=== PATIENT | female | born 1950 | race Caucasian/White ===

== ENCOUNTER → 2016-06-07 | Outpatient (CLI) | payer OTHER ==
[~2016-06-07] MED LIST: AMT10 PO; ASPI81TA28 PO; ATOR-22 PO; CLON2TAB3 PO; CLX/20 PO; CYCL10TA6 PO; CYM/30 PO; GABA1CAP5 PO; GLC500 PO; LEVO75TA PO; LISI-461 PO; MELO15TA4 PO; METH500T37 PO; OMEP40CA PO; PRLSR20 PO
--- NOTE | 2016-06-07 13:24 | MAMMOGRAPHY REPORT ---
BILATERAL DIGITAL SCREENING MAMMOGRAM WITH CAD: 06/07/2016 TECHNIQUE: Current study was also evaluated with a Computer Aided Detection (CAD) system. Bilatera l CC and MLO views were obtained. COMPARISON: Comparison is made to exams dated: 06/04/2015 mammogram, 06/02/2014 mammogram, 05/30/2013 ma mmogram, 05/28/2012 mammogram, 05/25/2011 mammogram, and 12/01/2009 mammogram - [facility]. BREAST COMPOSITION: There are scattered areas of fibroglandular density in both breasts. FINDINGS: No suspicious masses, calcifications, or areas of architectural distortion are noted in e ither breast. There has been no significant interval change compared to prior exams. Scattered bilat eral benign-appearing calcifications are not significantly changed. Small nodular asymmetry in the left superior anterior breast is similar to the 2013 exam and consistent with normal overlapping fib roglandular tissue. IMPRESSION: ACR BI-RADS CATEGORY 2: BENIGN There is no mammographic evidence of malignancy. A 1 year screening mammogram is recommended. The p atient will receive written notification of the results. Approximately 10% of breast cancers are not detected with mammography. A negative mammographic repor t should not delay biopsy if a clinically suggestive mass is present. Penny Das M.D. ah/:06/07/2016 09:50:04 Licensed Club Manager: Lana TORRES)(Liliam), [facility] letter sent: Normal 1/2 BI-RADS Code: ACR BI-RADS Category 2: Benign
== END | disposition home or self-care (01) ==
LOC: C.MAMM 09:30
PROVIDERS: ATTEND Family Medicine
DX: Z12.31 Encounter for screening mammogram for malignant neoplasm of breast (principal)

== ENCOUNTER → 2016-12-06 | Day surgery (SDC) | payer OTHER ==
[2016-11-10 10:30] VITALS: Ht 167.6 cm; Wt 95.0 kg
[~2016-12-06] VITALS: Ht 167.6 cm; Wt 95.0 kg
[~2016-12-06] MED LIST changes: +500ML BSS 0.3ML EPI 1:1000PF IRRIG ONE; +ACETAMINOPHEN 325 MG TAB PO PRN; -AMT10 PO; +AMVISC PLUS 0.8ML SYRINGE INT OCU ONE; +ATROPINE SULFATE 0.1 MG/ML 5ML SYR IV PRN; +BSS FLUSH ONE; -CLON2TAB3 PO; -CYM/30 PO; +EpHEDrine SULFATE INJ 50 MG/ML AMP IV PRN; +EpINEphrine INJ 1MG/ML AMP 1 MG/ML AMP ONE; +FENTANYL CITRATE INJ 50 MCG/1 ML 2 ML VIAL ONE; -GABA1CAP5 PO; +LACTATED RINGER'S 1000ML 500 ML IV SCH; +LIDOCAINE 3.5% OPH GEL PER APPLICATION CHARGE ONE; +LIDOCAINE HCL 1% MPF 2 ML VIAL ONE; -LISI-461 PO; -MELO15TA4 PO; -METH500T37 PO; +MIDAZOLAM HCL 1 MG/ML 2ML VIAL ONE; +OCUCOAT 1 ML SOLN IO ONE; -OMEP40CA PO; +PHENYLEPHRINE HCL 10% OP SOLN PER DROP CHARGE OPR SCH; +POVIDONE-IODINE OP SOLN 30 ML BTL ONE; +PROPARACAINE 0.5% OP SOLN PER DROP CHARGE OPR SCH; +TOBRAMYCIN/DEXAMETHASONE OPH OINT PER APPLN CHARGE ONE
[2016-12-06] MEDS: PHENYLEPHRINE HCL 2.5% OP SOLN PER DROP CHARGE OPR SCH ×2 (06:38→06:44)
[2016-12-06] MEDS: TROPICAMIDE 1% OP SOLN PER DROP CHARGE OPR SCH ×2 (06:39→06:45)
[2016-12-06] MEDS: CYCLOPENTOLATE HCL 1% OP SOLN PER DROP CHARGE OPR SCH ×2 (06:40→06:46)
[2016-12-06] MEDS: KETOROLAC 0.5% OP SOLN PER DROP CHARGE OPR SCH ×2 (06:41→06:47)
[2016-12-06] MEDS: GATIFLOXACIN OP SOLN PER DROP CHARGE OPR SCH ×2 (06:42→06:52)
--- NOTE | 2016-12-06 07:25 | History & Physical Bridge - SC ---
H&P Re-Evaluation Bridge Note: I have examined the patient, reviewed the History & Physical and in the interval since the performance of the History & Physical I have noted the following changes of clinical significance: No changes noted
--- NOTE | 2016-12-06 08:00 | Discharge Instructions-SurgCtr ---
Discharge Instructions Date of Service Dec 06, 2016. Visit Reason for Visit: Right Cataract Discharge Discharge Diagnosis / Problem: cataract Discharge Goals Goal(s): Improve function Activity Recommendations Activity Limitations: per Instructions/Follow-up section Anesthesia . Post Anesthesia Instructions: If you have had General Anesthesia or IV Sedation: * Do not drive today. * Resume driving when surgeon permits. * Do not make important decisions or sign legal documents today. * Call surgeon for: 1. Temperature elevations greater than 101 degrees F. 2. Uncontrollable pain. 3. Excessive bleeding. 4. Persistent nausea and vomiting. 5. Medication intolerance (nausea, vomiting or rash). * For nausea and vomiting use only clear liquids such as: tea, soda, bouillon until nausea subsides, then gradually increase diet as tolerated. * If you have any concerns or questions, call your surgeon's office. If physician is unavailable and it is an emergency, call 911 or go to the nearest emergency room. . Instructions / Follow-Up Instructions / Follow-Up ACTIVITY RECOMMENDATIONS: * No strenuous lifting, jogging or running for 4 days * No swimming or yard work for 1 week. * Limited bending is permitted, such as putting on shoes. RETURN TO SCHOOL/WORK: No work until seen by physician in office. MEDICATIONS: Resume previous medications unless instructed otherwise by your surgeon. This includes eye drops for glaucoma. Zymaxid/Gatifloxacin (hwang cap) - one drop every 2 hours until bedtime Nevanac/Ilevro/Prolensa/Ketorolac (conklin cap) - one drop every 4 hours until bedtime Prednisolone/Durezol (white/pink cap, SHAKE WELL) - one drop every 2 hours until bedtime Starting tomorrow - all 3 drops every 4 hours until seen in the office Optive drops - as needed for discomfort SPECIAL CARE INSTRUCTIONS: * Wear eyeshield when sleeping, for four nights. * You may wear your own glasses or sunglasses while awake. * You may read or watch TV * You may shower and wash your face, but be gentle around the eye and pat dry. * Blurry vision and mild irritation are normal. * Call office if pain is more severe or vision becomes dark at . FOLLOW UP VISIT: Follow-up with Dr Hunter tomorrow. Diet Recommendations Home Diet: resume previous diet Procedures Procedures Performed: Right Cataract Phacoemulsification With Intraocular Lens Implant Pending Studies Studies pending at discharge: no Medical Emergencies . Who to Call and When: Medical Emergencies: If at any time you feel your situation is an emergency, please call 911 immediately. . Non-Emergent Contact Non-Emergency issues call your: Hospice Consultant . . "Provider Documentation" section prepared by Herman Hunter. .
--- NOTE | 2016-12-06 08:01 | [facility] Operative Report ---
Operative Report Date of Service Dec 06, 2016. Operative Report 1. PREOPERATIVE DIAGNOSIS: Cataract of the right eye. 2. POSTOPERATIVE DIAGNOSIS: Same. 3. PROCEDURE: Phacoemulsification with intraocular lens implantation of the right eye. SURGEON: Dr. Herman Hunter. ANESTHESIA: Topical Lidocaine gel, 1% Non- Preserved intracameral Lidocaine, and monitored intravenous sedation. INDICATIONS FOR THE PROCEDURE: The patient is a 66 - year-old female with a history of cataract of the right eye causing significant visual impairment. The details of the proposed procedure were explained to the patient who asked appropriate questions and following discussion of all risks, benefits and alternatives agreed to have the procedure done. 4. OPERATION AND FINDINGS: DESCRIPTION OF PROCEDURE: After informed consent was obtained, the patient was brought to the Operating Room at the [facility]. The patient was placed in a supine position and then the right eye was prepped and draped in the usual sterile fashion for intraocular surgery. A drop of topical Lidocaine gel was placed in the operative eye. A wire lid speculum was then placed in the fornices. A corneal paracentesis was then created temporally. The Non-Preserved Lidocaine was then instilled into the anterior chamber. The anterior chamber was then pressurized with viscoelastic. A 2.0 mm clear corneal incision was then created temporally. A cystotome was inserted into the anterior chamber and used to create a tear in the anterior lens capsule. This capsular tear was then used to create a small flap and the flap was dragged in a counterclockwise direction in order to create a continuous curvilinear capsulorrhexis. Hydrodissection was accomplished with balanced salt solution. Phacoemulsification of the lens nucleus was then performed in a standard [id number] technique. The phaco time was 27 seconds with an average power of 8 %. The remaining cortical material was removed using irrigation aspiration. The capsular bag was then filled with viscoelastic. A Bausch [employer] Lomb MI60L +23.5 diopters lens was then loaded into the injector and injected into the capsular bag. The remaining viscoelastic was removed with the irrigation aspiration handpiece. The wound was hydrated and then checked and found to be watertight. The intraocular pressure was checked and found to be adequate. The wire lid speculum was removed and the patient's face was cleaned and dried. TobraDex ointment was placed in the inferior fornix. The patient was discharged to the Recovery Room having tolerated the procedure well. There were no complications. The patient will be seen tomorrow in the office for follow-up. I attest to the content of the Intraoperative Record and any orders documented therein. Any exceptions are noted below.
[2016-12-06 08:04] VITALS: TEMP 36
[2016-12-06 08:27] VITALS: BP 141/73; PULSE 59; O2SAT 96
--- NOTE | 2016-12-06 08:31 | Anesthesia Progress Nt - [facility] ---
Anesthesia Post Op Note Date & Time Dec 06, 2016 at 08:30 Vital Signs Pain Intensity: 0 Vital Signs Past 12 Hours Date Time Temp Pulse Resp B/P (MAP) Pulse Ox O2 Delivery O2 Flow Rate FiO2 12/06/16 08:27 59 16 141/73 (95) 96 Room Air 12/06/16 08:04 36 69 14 151/79 (103) 98 Room Air 12/06/16 06:29 36.3 69 16 140/69 (92) 97 Room Air Notes Mental Status: alert / awake / arousable, participated in evaluation Pt Amnestic to Procedure: Yes Nausea / Vomiting: adequately controlled Pain: adequately controlled Airway Patency, RR, SpO2: stable & adequate BP & HR: stable & adequate Hydration State: stable & adequate Anesthetic Complications: no major complications apparent
== END | disposition home or self-care (01) ==
LOC: X.SURG 06:09
PROVIDERS: ATTEND Ophthalmology
DX: H26.9 Unspecified cataract (principal); E11.9 Type 2 diabetes mellitus without complications

== ENCOUNTER → 2017-06-09 | Outpatient (CLI) | payer OTHER ==
[~2017-06-09] MED LIST changes: -500ML BSS 0.3ML EPI 1:1000PF IRRIG ONE; -ACETAMINOPHEN 325 MG TAB PO PRN; -AMVISC PLUS 0.8ML SYRINGE INT OCU ONE; -ATROPINE SULFATE 0.1 MG/ML 5ML SYR IV PRN; -BSS FLUSH ONE; -EpHEDrine SULFATE INJ 50 MG/ML AMP IV PRN; -EpINEphrine INJ 1MG/ML AMP 1 MG/ML AMP ONE; -FENTANYL CITRATE INJ 50 MCG/1 ML 2 ML VIAL ONE; -LACTATED RINGER'S 1000ML 500 ML IV SCH; -LIDOCAINE 3.5% OPH GEL PER APPLICATION CHARGE ONE; -LIDOCAINE HCL 1% MPF 2 ML VIAL ONE; -MIDAZOLAM HCL 1 MG/ML 2ML VIAL ONE; -OCUCOAT 1 ML SOLN IO ONE; -PHENYLEPHRINE HCL 10% OP SOLN PER DROP CHARGE OPR SCH; -POVIDONE-IODINE OP SOLN 30 ML BTL ONE; -PROPARACAINE 0.5% OP SOLN PER DROP CHARGE OPR SCH; -TOBRAMYCIN/DEXAMETHASONE OPH OINT PER APPLN CHARGE ONE
--- NOTE | 2017-06-09 14:57 | MAMMOGRAPHY REPORT ---
BILATERAL DIGITAL SCREENING MAMMOGRAM TOMOSYNTHESIS WITH CAD: 06/09/2017 CLINICAL HISTORY: Routine screening. TECHNIQUE: Breast tomosynthesis in addition to standard 2D mammography was performed. Current study was also evaluated with a Computer Aided Detection (CAD) system. COMPARISON: Comparison is made to exams dated: 06/07/2016 mammogram, 06/04/2015 mammogram, 06/02/2014 ma mmogram, 05/30/2013 mammogram, 05/28/2012 mammogram, and 05/25/2011 mammogram - [facility] BREAST COMPOSITION: There are scattered areas of fibroglandular density in both breasts. FINDINGS: No suspicious masses, calcifications, or areas of architectural distortion are noted in ei ther breast. There has been no significant interval change compared to prior exams. Scattered bilater al benign-appearing calcifications are not significantly changed. IMPRESSION: ACR BI-RADS CATEGORY 2: BENIGN There is no mammographic evidence of malignancy. A 1 year screening mammogram is recommended. The pa tient will receive written notification of the results. Approximately 10% of breast cancers are not detected with mammography. A negative mammographic report should not delay biopsy if a clinically suggestive mass is present. Penny Das M.D. ah/:06/09/2017 12:09:25 Utility Helicopter Repairer: Vivienne MERINO(R)(M), [facility] letter sent: Normal 1/2 BI-RADS Code: ACR BI-RADS Category 2: Benign
== END | disposition home or self-care (01) ==
LOC: C.MAMM 09:53
PROVIDERS: ATTEND Family Medicine
DX: Z12.31 Encounter for screening mammogram for malignant neoplasm of breast (principal)

== ENCOUNTER 2018-09-11 16:35 | Observation (INO) ==
--- OUTSIDE RECORDS SUMMARY | 2018-09-11 16:38 | External Medical Summary | Continuity of Care Document ---
:1950 Author Name Anjali Rogers, Provider Address Unavailable Unavailable , Care Team Providers Name Role Phone Kim Calhoun PA-C Unavailable [email or web address] Unavailable Unavailable Unavailable Unavailable Unavailable Assessments Assessed Problems:PsoriasisHypertensionHyperthyroidismType 2 diabetes mellitus Acid refluxSleep disturbancesDepressionHypercholesterolemiaRestless legs syndromeStapedial myoclonus Problems Restless legs syndrome (333.94) (G25.81) Hypercholesterolemia (272.0) (E78.00) Depression (311) (F32.9) Sleep disturbances (780.50) (G47.9) Acid reflux (530.81) (K21.9) Type 2 diabetes mellitus (250.00) (E11.9) Hyperthyroidism (242.90) (E05.90) Hypertension (401.9) (I10) Psoriasis (696.1) (L40.9) 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) Allergies and Adverse Reactions niacin (Allergy) Penicillins (Allergy) Bandaid (Allergy) Shrimp (Allergy) Medications Omeprazole 20 MG Oral Tablet Delayed Release Refills: 0 metFORMIN HCl TABS Refills: 0 Levothyroxine Sodium TABS Refills: 0 Lisinopril TABS Refills: 0 Lovastatin TABS Refills: 0 glipiZIDE TABS Refills: 0 Meloxicam TABS Refills: 0 Calcium + D TABS Refills: 0 Procedures History of Tonsillectomy Status: Complet ed History of Knee Surgery Status: Complete d History of Elbow Surgery Status: Complet ed History of Shoulder Surgery Status: Comp leted History of Eye Surgery Status: Completed History of Ankle Surgery Status: Complet ed History of Dental Surgery Status: Comple agustin Immunizations Immunizations not documented Family History Sister Family history of malignant neoplasm of breast (V16.3) (Z80. 3) Status: Active Family history of asthma (V17.5) (Z82.5) Status: Active Mother Family history of diabetes mellitus (V18.0) (Z83.3) Status: Active Family history of Embolism, pulmonary with infarction (415.1 9) Status: Active (I26.99) Father Family history of cerebrovascular accident (V17.1) (Z82.3) S tatus: Active Social History - Smoking Status Former smoker Interventions Follow-ups/ReferralsFollow-up as needed; Done: 17 Sep 2014 Plan of Treatment Planned Observations Planned Goals not documented Results No Known Results Results not documented Encounters Appointment; Kim Calhoun PA-C 17-Sep-2014 10:00 Encounter Diagnosis: Problem not documented
[2018-09-11 17:15] LABS: Basophils # (auto) 0.04 K/uL (0-0.2); Basophils % (auto) 0.7 %; Eosinophils # (auto) 0.26 K/uL (0-0.5); Eosinophils % (auto) 4.2 %; Hematocrit (blood only) 33.9 % (37-47); Hemoglobin 10.4 g/dL (12.0-16.0); Immature Granulocytes # (auto) 0.01 K/uL (0.00-0.02); Immature Granulocytes % (auto) 0.2 %; Lymphocytes # (auto) 2.02 K/uL (1.2-3.4); Mean Corpuscular Hgb Conc 30.7 g/dL (32-36); Mean Corpuscular Volume 89.7 fL (80-100); Mean Platelet Volume 9.9 fL (7.4-10.4); Monocytes # (auto) 0.62 K/uL (0.11-0.59); Monocytes % (auto) 10.1 %; Neutrophils # (auto) 3.18 K/uL (1.4-6.5); Neutrophils % (auto) 51.8 %; Platelet Count 249 K/uL (130-400); RDW Coefficient of Variation 14.3 % (11.5-14.5); RDW Standard Deviation 46.7 fL (36.4-46.3); Red Blood Count 3.78 M/uL (4.2-5.4); White Blood Count 6.13 K/uL (4.8-10.8)
--- NOTE | 2018-09-11 17:16 | CT Scan Report ---
CT head/brain wo con CLINICAL HISTORY: 67 years-old Female with Stroke evaluation . Acute strokelike symptoms TECHNIQUE: Multiple axial CT images of the head were obtained without contrast. A dose lowering tech nique was utilized adhering to the principles of ALARA. CT DOSE: 537.48 mGy.cm COMPARISON: Head CT 07/24/2015. FINDINGS: No acute intracranial hemorrhage, midline shift, intracranial mass, hydrocephalus, territorial ischem ia or abnormal extra-axial collection. Mild age-related involutional changes. Patchy white matter hyp odensities suggest chronic microscopic vascular ischemic disease, unchanged. Cerebral vascular calcif ications are noted. The calvarium is intact. The paranasal sinuses, mastoid air cells, and middle ear cavities are clear . IMPRESSION: No acute intracranial abnormality. The above report was generated using voice recognition software. It may contain grammatical, syntax o r spelling errors. Electronically signed by: Maikel Miller M.D. 09/11/2018 5:15 PM
[2018-09-11 17:25] LABS: Partial Thromboplastin Ratio 0.9; Partial Thromboplastin Time 23.9 Seconds (21.0-31.0); Prothrombin Time 10.3 Seconds (9.0-12.0)
[2018-09-11 17:31] LABS: Alanine Aminotransferase 21 U/L (12-78); Albumin Level 3.4 gm/dl (3.4-5.0); Aspartate Aminotransferase 17 U/L (15-37); BUN Creatinine Ratio 11.1 (10-20); Blood Urea Nitrogen 13 mg/dl (7-18); Calcium 9.3 mg/dl (8.5-10.1); Carbon Dioxide 29 mmol/L (21-32); Chloride 106 mmol/L (98-107); Creatinine Clr Calc Pharmacy 52.5 ml/min; Est GFR (African American) 54.5; Glucose 122 mg/dl (70-99); Magnesium 1.6 mg/dl (1.8-2.4); Potassium 4.2 mmol/L (3.5-5.1); Sodium 140 mmol/L (136-145)
[2018-09-11 17:36] LABS: Albumin Globulin Ratio 0.9 (0.9-2); Alkaline Phosphatase 118 U/L (45-117); Bilirubin,Total 0.2 mg/dl (0.2-1); Globulin 3.6 gm/dl (2.5-4.0); Troponin I < 0.015 ng/ml (0-0.045)
--- NOTE | 2018-09-11 17:40 | XRay Report ---
XR chest 1V portable CLINICAL HISTORY: 67 years-old Female presenting with cva. TECHNIQUE: Portable upright AP view of the chest was obtained. COMPARISON: Chest CT from 07/24/2015 and chest x-ray from 03/14/2014. FINDINGS: Atherosclerosis of the aortic arch. Cardiac silhouette top normal in size. No focal opacity. No large effusion or pneumothorax. Degenerative changes of the thoracic spine. Posttraumatic deformity of the left clavicle. Upper abdomen normal. IMPRESSION: 1. No acute cardiopulmonary disease. Electronically signed by: Keenan Ewing M.D. 09/11/2018 5:39 PM
--- NOTE | 2018-09-11 20:03 | History & Physical Report ---
Date of Service September 11, 2018 Assessment & Plan (1) TIA (transient ischemic attack): This is a 67-year-old female with a PMH of DM II, CKD III, HLD and other medical problems listed below who presents with left-sided paresthesias and numbness of face and hand beginning earlier today that have since resolved. -Left sided paresthesias and numbness of hand, since resolved -Rule out CVA. CT head-negative for acute abnormality -Check MRI brain w/wo, CTA head/neck, echo w/ bubble study -Continue baby aspirin. If found to have deficit, will need to add Plavix -Neuro checks, PT, OT, speech therapy evaluations -NPO for now. Advance diet once passes dysphagia screen -Routine neuro consult (2) Diabetes mellitus, type II: Recent a1c of 6.7 -Hold home agents -SSI while in-patient -BSG AC HS (3) Hypertension: Used to be on antihypertensives but have been discontinued (4) Hyperlipidemia: Continue statin (5) CKD (chronic kidney disease), stage III: Kidney function at baseline. Continue to monitor with daily BMP (6) Mood disorder: Continue Celexa, Remeron (7) GERD (gastroesophageal reflux disease): Continue PPI DVT Ppx: SQ Lovenox Code status: FULL PCP: Daniela Dispo: Observation med tele. Discharge planning ordered per stroke set protocol. Patient seen in collaboration with Dr. Story. Please see addendum. History of Present Illness Chief Complaint: Left hand/face numbness, left hand weakness Primary Care Provider: Miguel Suarez MD This is a 67-year-old female with a PMH of DM II, CKD III, HLD and other medical problems listed below who presents with left-sided paresthesias and numbness of face and hand beginning earlier today that have since resolved. Patient was working around her yard today, mowing her lawn with a riding mower and helping in the garage when she developed progressive numbness of left hand and face. Then also developed weakness of left hand and was unable to button jeans or brain picker objects from table. Denies any difficulty speaking, swallowing or walking. Denies any personal history of stroke. Has been experiencing lightheadedness intermittently over the past few months that occurs when she looks up or moves quickly. Has history of vertigo and states that this feels similar. Remote history of migraines 30 years ago. Takes baby aspirin daily. In ED, patient mildly hypertensive with BP 155/69. Kidney function is at baseline. Has history of diabetes with A1c of 6.7 in June 2018. Prior to my evaluation, patient described as an ache in her chest that was reproducible. EKG is normal sinus rhythm, no ischemic changes. Pain has since resolved. Denies any fever, chills, lightheadedness, headache, palpitations, shortness of breath, nausea, vomiting, abdominal pain, dysuria, diarrhea or constipation. Allergies Allergy/AdvReac Type Severity Reaction Status Date / Time Penicillins Allergy Intermediate RASH Verified 09/11/18 17:05 shrimp Allergy Intermediate HIVES Verified 09/11/18 17:05 tramadol Allergy Mild iTCHY Verified 09/11/18 17:05 niacin AdvReac Mild GETS RED Verified 09/11/18 17:05 Home Medications Home Medications Medication Instructions Recorded Confirmed Type aspirin [Aspir-81] 81 mg PO DAILY 04/28/18 09/11/18 History atorvastatin [Lipitor] 20 mg PO DAILY 04/28/18 09/11/18 History citalopram [Celexa] 20 mg PO QPM 04/28/18 09/11/18 History levothyroxine [Synthroid] 75 mcg PO DAILY 04/28/18 09/11/18 History metformin [Glucophage] 1,000 mg PO BID 04/28/18 09/11/18 History omeprazole 20 mg PO DAILY 04/28/18 09/11/18 History prednisolone acetate [Pred Forte] 1 drp OPL DAILY 04/28/18 09/11/18 History mirtazapine 15 mg PO HS 09/11/18 09/11/18 History pramipexole 0.5 mg PO HS 09/11/18 09/11/18 History tramadol 50 mg PO UD PRN 09/11/18 09/11/18 History Past Med/Surg History Medical History CKD (chronic kidney disease), stage III (Chronic) Mood disorder (Chronic) Diabetes mellitus, type II (Chronic) GERD (gastroesophageal reflux disease) (Chronic) Chronic tonsillitis (Chronic) Hyperlipidemia (Chronic) Hypertension (Chronic) Lumbar stenosis with neurogenic claudication (Chronic 03/13/14) Rosacea (Chronic) Surgical History History of back surgery (Chronic) H/O shoulder surgery (Chronic) History of ankle surgery (Chronic) Family History Other Cancer Diabetes Hypertension Social History Preferred Language: Maltese Communication Ability: Effective Visual Impairment: No Limitations Hearing Ability: Normal Beliefs That Will Affect Care: None Current Living Situation: Spouse Other Information That Helps Us Care for You: No Feels Safe at Home: Yes Safety Concerns: Feels Safe At This Time Smoking Status: Never smoker Years Smoked: 28 Smoking End Date: 1996 Hx Alcohol Use: No Hx Substance Use: No Review of Systems Review of Systems: At least ten systems reviewed and negative except as noted in the HPI. Physical Exam Physical Exam: General Appearance: WD/WN, no apparent distress, resting comfortably Head: normocephalic, atraumatic Eyes: normal inspection, PERRL, EOMI ENT: hearing grossly normal, pharynx normal (moist mucous membranes) Neck: supple, no JVD, no adenopathy Respiratory/Chest: lungs clear to auscultation. No wheezes, rales or rhonci. No respiratory distress or accessory muscle use Cardiovascular: regular rate, rhythm, no murmur, normal peripheral pulses Abdomen/GI: normal bowel sounds, soft, non-tender to palpation Extremities/Musculoskelatal: normal inspection, no calf tenderness, normal capillary refill, no pedal edema Neurologic/Psych: alert, normal mood/affect, oriented x 3. CN II- XII grossly intact. No sensory or motor deficits noted. Skin: normal color, warm/dry Results & Data Vital Signs (Past 12 Hours) Vital Signs Temp Pulse Resp BP Pulse Ox 09/11/18 19:15 67 19 155/69 H 95 09/11/18 19:00 68 18 142/77 H 95 09/11/18 18:46 69 18 146/78 H 96 09/11/18 18:45 68 19 97 09/11/18 18:30 70 17 128/62 95 09/11/18 18:15 66 19 121/68 92 09/11/18 18:00 65 15 135/65 93 09/11/18 17:45 66 15 137/69 95 09/11/18 17:30 66 24 161/71 H 94 09/11/18 17:28 58 L 21 95 09/11/18 17:23 65 18 166/83 H 97 09/11/18 16:37 36.7 C 65 16 177/82 H 98 Laboratory Results Short CBC 09/11/18 Range/Units 16:57 WBC 6.13 (4.8-10.8) K/uL Hgb 10.4 L (12.0-16.0) g/dL Hct 33.9 L (37-47) % Plt Count 249 (130-400) K/uL BMP 09/11/18 16:57 Sodium 140 Potassium 4.2 Chloride 106 Carbon Dioxide 29 BUN 13 Creatinine 1.18 Glucose 122 H Calcium 9.3 Cardiac Enzymes 09/11/18 Range/Units 16:57 Troponin I < 0.015 (0-0.045) ng/ml Liver Function 09/11/18 Range/Units 16:57 Total Bilirubin 0.2 (0.2-1) mg/dl AST 17 (15-37) U/L ALT 21 (12-78) U/L Alkaline Phosphatase 118 H (45-117) U/L Albumin 3.4 (3.4-5.0) gm/dl Diagnostic Findings CT head: IMPRESSION: No acute intracranial abnormality. CXR: IMPRESSION: 1. No acute cardiopulmonary disease. ECG Rhythm: normal sinus Supervising Physician Co-Signing Physician Notes Pt was seen and examined. Agreed with Lorraine SKINNER exam, assessment and plan. 67-year-old female with a PMH of DM II, CKD III, HLD, presents to the ER with left-sided numbness of face and hand associated with left hand weakness. Pt said that she had similar symptoms about 2 months ago. En route to the ER her symptoms resolved. CT head done showed no acute intracranial abnormality. Will get MRI brain w/wo contrast, CTA head/neck, echo w/ bubble study. PT/OT/Speech eval. Neurology consult. Continue aspirin. Monitor closely in tele. MD Porsha
[2018-09-11] MEDS ORDERED: LORazepam 0.5 MG/1 ML VIAL IV ONE (20:28)
[2018-09-11] MEDS ORDERED: GLUCOSE 40% GEL 15 GM TUBE PO PRN (20:28)
[2018-09-11] MEDS ORDERED: PHARMACIST DISCHARGE MED REC CONSULT PRN (20:28)
[2018-09-11] MEDS ORDERED: CARBOHYDRATES FOR HYPOGLYCEMIA PO PRN (20:28)
[2018-09-11] MEDS ORDERED: POLYETHYLENE (MIRALAX) 17 GM PACK PO PRN (20:28)
[2018-09-11] MEDS ORDERED: ONDANSETRON INJ 2 MG/ML 2 ML VIAL IV PRN (20:28)
[2018-09-11] MEDS ORDERED: GLUCOSE 10 TABS/TUBE PO PRN (20:28)
[2018-09-11] MEDS ORDERED: TRAMADOL HCL 50 MG TABLET PO PRN (20:28)
[2018-09-11] MEDS ORDERED: DEXTROSE 50% 50 ML SYRINGE IV PRN (20:28)
[2018-09-11] MEDS ORDERED: GLUCAGON FOR INJ 1 MG VIAL SQ PRN (20:28)
[2018-09-11] MEDS ORDERED: ACETAMINOPHEN 325 MG TAB PO PRN (20:28)
[2018-09-11] MEDS ORDERED: CITALOPRAM 20 MG TAB PO SCH (21:00)
[2018-09-11] MEDS ORDERED: INSULIN ASPART 100 UNITS/ML 3 ML PEN SC SCH (21:00)
[2018-09-11] MEDS ORDERED: PRAMIPEXOLE DIHYDROCHLO 0.5 MG TAB PO SCH (21:00)
[2018-09-11] MEDS ORDERED: MAGNESIUM SULFATE / D5W 1 GM/100 ML BAG IV ONE (21:00)
[2018-09-11] MEDS ORDERED: MIRTAZAPINE TAB 15 MG TAB PO SCH (21:00)
[2018-09-11] MEDS ORDERED: OPTIRAY 320 125ml IV PRN (21:22)
--- NOTE | 2018-09-11 21:48 | CT Scan Report ---
CT angio head w con CLINICAL HISTORY: 67 years-old Female presenting with stroke work up, acute strokelike symptoms. TECHNIQUE: Multidetector CT angiography of the head was performed after the administration of intrave nous contrast. 3-D volumetric and/or maximum intensity projection (MIP) images were subsequently danny nstructed for review. IV contrast: 116 mL of Optiray 320. One or more dose lowering techniques were u sed consistent with the principles of ALARA (as low as reasonably achievable), including automatic ex posure control, mA or kV adjustment to individual patient size, and/or use of iterative reconstructio n. COMPARISON: Noncontrast CT head performed earlier today. CT DOSE (mGy.cm): The estimated cumulative dose is 497.63 mGy.cm. FINDINGS: Cracker Off topogram: The patient is edentulous. Anterior circulation: Atherosclerosis of the cavernous segments of the internal carotid arteries. Int racranial portions of the internal carotid arteries patent to the level of the termini. Anterior cere bral arteries patent. Middle cerebral arteries patent. Anterior communicating artery patent. Posterior circulation: Codominant vertebral arteries. Intradural portions of the vertebral arteries p atent. Posterior inferior cerebellar arteries patent. Basilar artery patent. Anterior inferior cerebe llar arteries poorly visualized. Superior cerebellar arteries patent. Posterior cerebral arteries pat ent. Posterior communicating arteries patent. Dural venous sinuses: Patent. Other: Allowing for the phase of contrast, brain parenchyma within normal limits. Calvarium intact. IMPRESSION: 1. No evidence of aneurysm, focal vessel occlusion, or significant stenosis of the intracranial jhon ca. Electronically signed by: Keenan Ewing M.D. 09/11/2018 9:47 PM
--- NOTE | 2018-09-11 21:55 | CT Scan Report ---
CT angio neck with con CLINICAL HISTORY: 67 years-old Female presenting with stroke work up. TECHNIQUE: Multidetector CT angiography of the neck was performed after the administration of intrave nous contrast. 3-D volumetric and/or maximum intensity projection (MIP) images were subsequently danny nstructed for review. IV contrast: 116 mL of Optiray 320. One or more dose lowering techniques were u sed consistent with the principles of ALARA (as low as reasonably achievable), including automatic ex posure control, mA or kV adjustment to individual patient size, and/or use of iterative reconstructio n. Stenosis measurements were based on NASCET-like criteria (distal lumen diameter as the denominator for stenosis measurement). COMPARISON: None. CT DOSE (mGy.cm): The estimated cumulative dose is 497.63. FINDINGS: Chicken Stuffer topogram: The patient is edentulous. Aortic arch: Atherosclerosis of the three-vessel aortic arch with patent origins of the branch vessel s. Innominate artery: Patent. Right subclavian artery: Patent. Right common carotid artery: Patent. Right internal and external carotid arteries: Right carotid bifurcation patent though with atheroscle rotic plaque. Right internal and external carotid arteries widely patent. Left common carotid artery: Patent. Left internal and external carotid arteries: Left carotid bifurcation patent though with atherosclero tic plaque. A variant branch arises from the distal common carotid artery immediately proximal to the bifurcation (series 4 image 198). This vessel likely represents the superior thyroid artery with a p roximal origin. This courses to the pretracheal region along the superior pole the thyroid and appear s to supply a 1.0 x 1.4 cm aneurysmally dilated enhancing structure. This is most suspicious for pseu doaneurysm. Left internal and external carotid arteries widely patent. Left subclavian artery: Patent. Vertebral arteries: Codominant vertebral arteries. Origins and courses of the bilateral vertebral art eries patent. Other: Limited intracranial evaluation within normal limits. Soft tissues of the neck normal allowing for the phase of contrast apart from the above described suspected pseudoaneurysm. Degenerative holt ges of the cervical spine. Lung apices clear. IMPRESSION: 1. No evidence of dissection, focal vessel occlusion, or significant stenosis of the cervical arteri es. 2. 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 This appears to be supplied by the superior thyroid artery. Differential considerati ons include a venous varix. This is of uncertain clinical significance and may relate to prior trauma . Electronically signed by: Keenan Ewing M.D. 09/11/2018 9:53 PM
[2018-09-11] MEDS ORDERED: GADOBUTROL 65ML VIAL IV PRN (21:57)
--- NOTE | 2018-09-11 22:11 | Magnetic Resonance Report ---
MR brain wo/w con CLINICAL HISTORY: 67 years-old Female presenting with stroke work up, facial numbness, left hand numb ness, symptoms began at 2:30 PM now resolved, recent dizzy spells, headache today, history of fall in April. TECHNIQUE: Multisequence, multiplanar MR imaging of the brain was performed before and after the admi nistration of intravenous contrast. IV contrast: 9.5 mL of Gadavist. COMPARISON: Noncontrast CT head from earlier today. FINDINGS: Localizer images: Unremarkable. Normal midline sagittal structures. Ventricles and sulci normal in size. No restricted diffusion or h emorrhage. Periventricular and subcortical white matter T2/FLAIR hyperintensity, nonspecific but like ly indicative of chronic small vessel ischemic change. No mass effect or midline shift. No abnormal p arenchymal enhancement. No extra-axial fluid collection. T2 skull base flow voids preserved. Bone marrow signal intensity within the calvarium within normal limits. Bilateral match-e-be-nash-she-wish band lenses are a bsent. IMPRESSION: 1. Chronic small vessel ischemic change. This is advanced for the patient's age though the distribut ion is appropriate for this diagnosis. Differential considerations include the demyelinating disease among other etiologies, which are less likely. 2. No acute intracranial pathology. No abnormal enhancement. Electronically signed by: Keenan Ewing M.D. 09/11/2018 10:09 PM
[2018-09-11] MEDS: INSULIN ASPART 100 UNITS/ML 3 ML PEN SC SCH (22:32)
--- NOTE | 2018-09-11 23:32 | Emergency Department Note ---
Entered by Houston Gaytan acting as a scribe for Dane Azveedo DO History of Present Illness General Chief complaint: Neuro Symptoms/Deficit Stated complaint: HEADACHE, NUMBNESS IN LEFT HAND AND FACE Source: patient History of Present Illness Onset (ago): hour(s) (2.5) Location: left Pain Consistency: + now resolved (except for headache) Maximum Pain Intensity: 5 Quality: + other (left sided numbness and weakness) Associated symptoms: + headaches and + other (denies speech difficulties) The patient is a 67 year old female who presents to the Emergency Room with complaints of currently resolved left-sided neurological symptoms. The patient reports that 2.5 hours ago her left hand became numb and weak, followed by numbness in the left side of her face and nose. She is unsure how far the numbness traveled up her left arm, but it did not reach her shoulder. She denies any speech difficulties. She reports that her symptoms are resolved, with the exception of a worsening headache in the back of the head that started around the same time as the other symptoms. She reports a history of similar symptoms but was never evaluated for it. She notes a history of migraines 30 years ago and is unsure if there was any associated weakness or numbness at that time. Home Medications Home Medications Medication Instructions Recorded Confirmed Type aspirin [Aspir-81] 81 mg PO DAILY 04/28/18 09/11/18 History atorvastatin [Lipitor] 20 mg PO DAILY 04/28/18 09/11/18 History citalopram [Celexa] 20 mg PO QPM 04/28/18 09/11/18 History levothyroxine [Synthroid] 75 mcg PO DAILY 04/28/18 09/11/18 History metformin [Glucophage] 1,000 mg PO BID 04/28/18 09/11/18 History omeprazole 20 mg PO DAILY 04/28/18 09/11/18 History prednisolone acetate [Pred Forte] 1 drp OPL DAILY 04/28/18 09/11/18 History mirtazapine 15 mg PO HS 09/11/18 09/11/18 History pramipexole 0.5 mg PO HS 09/11/18 09/11/18 History tramadol 50 mg PO UD PRN 09/11/18 09/11/18 History Allergies Allergy/AdvReac Type Severity Reaction Status Date / Time Penicillins Allergy Intermediate RASH Verified 09/11/18 17:05 shrimp Allergy Intermediate HIVES Verified 09/11/18 17:05 tramadol Allergy Mild iTCHY Verified 09/11/18 17:05 niacin AdvReac Mild GETS RED Verified 09/11/18 17:05 Past Med/Surg History Medical History CKD (chronic kidney disease), stage III (Chronic) Mood disorder (Chronic) Diabetes mellitus, type II (Chronic) GERD (gastroesophageal reflux disease) (Chronic) Chronic tonsillitis (Chronic) Hyperlipidemia (Chronic) Hypertension (Chronic) Lumbar stenosis with neurogenic claudication (Chronic 03/13/14) Rosacea (Chronic) Surgical History History of back surgery (Chronic) H/O shoulder surgery (Chronic) History of ankle surgery (Chronic) Family History Other Cancer Diabetes Hypertension Social History Preferred Language: Lebanese Communication Ability: Effective Visual Impairment: No Limitations Hearing Ability: Normal Beliefs That Will Affect Care: None Current Living Situation: Spouse Other Information That Helps Us Care for You: No Feels Safe at Home: Yes Safety Concerns: Feels Safe At This Time Smoking Status: Never smoker Years Smoked: 28 Smoking End Date: 1996 Hx Alcohol Use: No Hx Substance Use: No Review of Systems See HPI for pertinent positives & negatives. and A total of 10 systems reviewed and were otherwise negative Physical Exam Vital Signs Vital Signs - 24 hr 09/11/18 16:37 09/11/18 17:23 09/11/18 17:28 Temperature 36.7 C Temperature Source Oral Sepsis Recent Fever Within 48 Hours No Sepsis New/Unexplained Change in Mental Status No Sepsis Action Taken by Nursing No Action Required Pulse Rate 65 65 58 L Pulse Rate from SpO2 Sensor 65 62 Respiratory Rate 16 18 21 Respiratory Depth Normal Blood Pressure 177/82 H 166/83 H Blood Pressure Mean 113 110 Pulse Oximetry 98 97 95 Oxygen Delivery Method Room Air 09/11/18 17:30 09/11/18 17:45 09/11/18 18:00 Temperature Temperature Source Sepsis Recent Fever Within 48 Hours Sepsis New/Unexplained Change in Mental Status Sepsis Action Taken by Nursing Pulse Rate 66 66 65 Pulse Rate from SpO2 Sensor 69 67 65 Respiratory Rate 24 15 15 Respiratory Depth Blood Pressure 161/71 H 137/69 135/65 Blood Pressure Mean 101 91 88 Pulse Oximetry 94 95 93 Oxygen Delivery Method 09/11/18 18:15 09/11/18 18:30 09/11/18 18:45 Temperature Temperature Source Sepsis Recent Fever Within 48 Hours Sepsis New/Unexplained Change in Mental Status Sepsis Action Taken by Nursing Pulse Rate 66 70 68 Pulse Rate from SpO2 Sensor 66 70 68 Respiratory Rate 19 17 19 Respiratory Depth Blood Pressure 121/68 128/62 Blood Pressure Mean 85 84 Pulse Oximetry 92 95 97 Oxygen Delivery Method 09/11/18 18:46 09/11/18 19:00 09/11/18 19:15 Temperature Temperature Source Sepsis Recent Fever Within 48 Hours Sepsis New/Unexplained Change in Mental Status Sepsis Action Taken by Nursing Pulse Rate 69 68 67 Pulse Rate from SpO2 Sensor 69 69 68 Respiratory Rate 18 18 19 Respiratory Depth Blood Pressure 146/78 H 142/77 H 155/69 H Blood Pressure Mean 100 98 97 Pulse Oximetry 96 95 95 Oxygen Delivery Method GENERAL: alert, sitting up in bed, well appearing, well nourished, no distress, non-toxic EYE EXAM: normal conjunctiva, PERRL and EOM's intact OROPHARYNX: no exudate, no erythema, lips, buccal mucosa, and tongue normal and mucous membranes are moist NECK: supple, no nuchal rigidity, no adenopathy, non-tender LUNGS: Clear to auscultation. Normal chest wall mechanics HEART: no murmurs, S1 normal and S2 normal ABDOMEN: abdomen soft, non-tender, normo-active bowel sounds, no masses, no rebound or guarding. BACK: Back is symmetrical on inspection and there is no deformity, no midline tenderness, no CVA tenderness. SKIN: no rashes and no bruising UPPER EXTREMITIES: upper extremities are grossly normal. LOWER EXTREMITIES: No pitting edema. NEURO EXAM: Normal sensorium, cranial nerves II-XII intact, normal speech, no weakness of arms, no weakness of legs. Sensation intact. Course ED COURSE: Vital signs were reviewed and showed hypertension The patients medical record was reviewed The above diagnostic studies were performed and reviewed. ED treatments and interventions as stated above. 9: The patient was evaluated in room A11B. A complete history and physical examination was performed. 1802: I consulted Lorraine Khan PA-C: [facility] Hospitalist. The patient will be reevaluated for hospitalization. Based on the patients age, coexisting illnesses, exam and lab findings the decision to treat as an inpatient was made. The patient remained stable while under my care. The patient will be evaluated for further management. Administered Medications Citalopram Hydrobromide (Celexa) 20 mg PO QPM KVNG Stop: 10/11/18 20:59 Last Admin: 09/11/18 22:32 Dose: 20 mg Documented by: [id number] Gadobutrol (Gadavist 65ml) 9.5 ml IV ONCE PRN PRN Reason: Interaction Checking Stop: 09/15/18 21:56 Last Admin: 09/11/18 21:58 Dose: 9.5 ml Documented by: [id number] Insulin Aspart (Novolog Flexpen) 0 units SC ACHS KVNG Stop: 10/11/18 20:59 Last Admin: 09/11/18 22:32 Dose: Not Given Documented by: [id number] Cosigned by: [id number] Ioversol (Optiray 320 125ml) 116 ml IV ONCE PRN PRN Reason: Interaction Checking Stop: 09/15/18 21:21 Last Admin: 09/11/18 21:23 Dose: 116 ml Documented by: [id number] Mirtazapine (Remeron) 15 mg PO HS KVGN Stop: 10/11/18 20:59 Last Admin: 09/11/18 22:32 Dose: 15 mg Documented by: [id number] Pramipexole Dihydrochloride (Mirapex) 0.5 mg PO HS KVNG Stop: 10/11/18 20:59 Last Admin: 09/11/18 22:32 Dose: 0.5 mg Documented by: [id number] Discontinued Medications Lorazepam (Ativan) 0.5 mg in 1 mls @ 0.5 mls/min IV ONE ONE Stop: 09/11/18 20:29 Last Admin: 09/11/18 20:49 Dose: 0.5 mls/min Documented by: [id number] Magnesium Sulfate/Dextrose (Magnesium Sulfate / D5w) 1 gm in 100 mls @ 100 mls/hr IV ONE ONE Stop: 09/11/18 21:59 Last Admin: 09/11/18 22:31 Dose: 100 mls/hr Documented by: [id number] Medical Decision Making Differential Diagnosis Differential Diagnosis includes but is not limited to ischemic Stroke, hemorrhagic stroke, bells palsy, mass, neoplasm, migraine headache, seizure, subarachnoid hemorrhage, TIA, and transient global amnesia. Medical Records Attestation: I reviewed the patient's medical records. Home Medications Current Medication List: was personally reviewed by me Laboratory Data Attestation: I reviewed the patient's lab results. Result diagrams: 09/11/18 16:57 09/11/18 16:57 Lab Results 09/11/18 09/11/18 09/11/18 Range/Units 16:57 16:57 16:57 WBC 6.13 (4.8-10.8) K/uL RBC 3.78 L (4.2-5.4) M/uL Hgb 10.4 L (12.0-16.0) g/dL Hct 33.9 L (37-47) % MCV 89.7 (80-100) fL MCH 27.5 (25-34) pg MCHC 30.7 L (32-36) g/dL RDW Std Deviation 46.7 H (36.4-46.3) fL RDW Coeff of Maryse 14.3 (11.5-14.5) % Plt Count 249 (130-400) K/uL MPV 9.9 (7.4-10.4) fL Immature Gran % (Auto) 0.2 % Neut % (Auto) 51.8 % Lymph % (Auto) 33.0 % [place] % (Auto) 10.1 % Eos % (Auto) 4.2 % Baso % (Auto) 0.7 % Immature Gran # (Auto) 0.01 (0.00-0.02) K/uL Neut # (Auto) 3.18 (1.4-6.5) K/uL Lymph # (Auto) 2.02 (1.2-3.4) K/uL [place] # (Auto) 0.62 H (0.11-0.59) K/uL Eos # (Auto) 0.26 (0-0.5) K/uL Baso # (Auto) 0.04 (0-0.2) K/uL PT 10.3 (9.0-12.0) Seconds INR 1.0 (0.9-1.1) APTT 23.9 (21.0-31.0) Seconds PTT Ratio 0.9 Sodium 140 (136-145) mmol/L Potassium 4.2 (3.5-5.1) mmol/L Chloride 106 (98-107) mmol/L Carbon Dioxide 29 (21-32) mmol/L Anion Gap 5.0 (3-11) BUN 13 (7-18) mg/dl Creatinine 1.18 (0.6-1.2) mg/dl Est Cr Clr Drug Dosing 52.5 ml/min Est GFR ( Amer) 54.5 Est GFR (Non-Af Amer) 47.0 BUN/Creatinine Ratio 11.1 (10-20) Glucose 122 H (70-99) mg/dl POC Glucose (70-99) Calcium 9.3 (8.5-10.1) mg/dl Magnesium 1.6 L (1.8-2.4) mg/dl Total Bilirubin 0.2 (0.2-1) mg/dl AST 17 (15-37) U/L ALT 21 (12-78) U/L Alkaline Phosphatase 118 H (45-117) U/L Troponin I < 0.015 (0-0.045) ng/ml Total Protein 7.0 (6.4-8.2) gm/dl Albumin 3.4 (3.4-5.0) gm/dl Globulin 3.6 (2.5-4.0) gm/dl Albumin/Globulin Ratio 0.9 (0.9-2) / Range/Units 17:17 WBC (4.8-10.8) K/uL RBC (4.2-5.4) M/uL Hgb (12.0-16.0) g/dL Hct (37-47) % MCV (80-100) fL MCH (25-34) pg MCHC (32-36) g/dL RDW Std Deviation (36.4-46.3) fL RDW Coeff of Maryse (11.5-14.5) % Plt Count (130-400) K/uL MPV (7.4-10.4) fL Immature Gran % (Auto) % Neut % (Auto) % Lymph % (Auto) % [place] % (Auto) % Eos % (Auto) % Baso % (Auto) % Immature Gran # (Auto) (0.00-0.02) K/uL Neut # (Auto) (1.4-6.5) K/uL Lymph # (Auto) (1.2-3.4) K/uL [place] # (Auto) (0.11-0.59) K/uL Eos # (Auto) (0-0.5) K/uL Baso # (Auto) (0-0.2) K/uL PT (9.0-12.0) Seconds INR (0.9-1.1) APTT (21.0-31.0) Seconds PTT Ratio Sodium (136-145) mmol/L Potassium (3.5-5.1) mmol/L Chloride (98-107) mmol/L Carbon Dioxide (21-32) mmol/L Anion Gap (3-11) BUN (7-18) mg/dl Creatinine (0.6-1.2) mg/dl Est Cr Clr Drug Dosing ml/min Est GFR ( Amer) Est GFR (Non-Af Amer) BUN/Creatinine Ratio (10-20) Glucose (70-99) mg/dl POC Glucose 106 H (70-99) Calcium (8.5-10.1) mg/dl Magnesium (1.8-2.4) mg/dl Total Bilirubin (0.2-1) mg/dl AST (15-37) U/L ALT (12-78) U/L Alkaline Phosphatase (45-117) U/L Troponin I (0-0.045) ng/ml Total Protein (6.4-8.2) gm/dl Albumin (3.4-5.0) gm/dl Globulin (2.5-4.0) gm/dl Albumin/Globulin Ratio (0.9-2) Imaging Data Radiologist's Impression: Radiology results as stated below per my review and the radiologist's interpretation: XR chest 1V portable CLINICAL HISTORY: 67 years-old Female presenting with cva. TECHNIQUE: Portable upright AP view of the chest was obtained. COMPARISON: Chest CT from 07/24/2015 and chest x-ray from 03/14/2014. FINDINGS: Atherosclerosis of the aortic arch. Cardiac silhouette top normal in size. No focal opacity. No large effusion or pneumothorax. Degenerative changes of the thoracic spine. Posttraumatic deformity of the left clavicle. Upper abdomen normal. IMPRESSION: 1. No acute cardiopulmonary disease. Electronically signed by: Keenan Ewing M.D. 09/11/2018 5:[address] head/brain wo con CLINICAL HISTORY: 67 years-old Female with Stroke evaluation . Acute strokelike symptoms TECHNIQUE: Multiple axial CT images of the head were obtained without contrast. A dose lowering technique was utilized adhering to the principles of ALARA. CT DOSE: 537.48 mGy.cm COMPARISON: Head CT 07/24/2015. FINDINGS: No acute intracranial hemorrhage, midline shift, intracranial mass, hydrocephalus, territorial ischemia or abnormal extra-axial collection. Mild age-related involutional changes. Patchy white matter hypodensities suggest chronic microscopic vascular ischemic disease, unchanged. Cerebral vascular calcifications are noted. The calvarium is intact. The paranasal sinuses, mastoid air cells, and middle ear cavities are clear. IMPRESSION: No acute intracranial abnormality. The above report was generated using voice recognition software. It may contain grammatical, syntax or spelling errors. Electronically signed by: Maikel Miller M.D. 09/11/2018 5:15 PM ECG Data Attestation: I personally reviewed and interpreted this ECG as follows: Indication: weakness Rate (beats per minute): 64 Rhythm: sinus rhythm Findings: + other (normal axis); no PVC Blood Pressure Blood Pressure Findings: Elevated blood pressure Blood Pressure Disposition: further management by hospitalist MDM Narrative Patient is a 67-year-old female who presents the ER for left-sided facial and left upper extremity paresthesias. It is associated with left hand weakness. This resolved prior to presentation. She does have a mild headache now. History of previous migraines with no previous CVAs. Labs were obtained and shows no significant leukocytosis or anemia. INR was unremarkable. BMP along with LFTs bilirubin and troponin was negative. Patient was updated bedside. CT head was negative. Chest x-ray unremarkable. EKG was nondiagnostic. Patient was currently at baseline and was discussed with hospitalist for observation secondary to a possible TIA. Discussed with Pt concerning signs and symptoms to watch out for. Pt was instructed to follow up with their PCP and discussed with the patient their option to return to the ED at anytime for persistent or worsening symptoms. The appropriate anticipatory guidance and out-patient management, including indications for return to the emergency department, were explained at length to the patient and understood. Impression & Plan TIA (transient ischemic attack) Discharge Plan Visit Data *Final* Discharge Date/Time: 09/11/18 19:45 Chief Complaint: Neuro Symptoms/Deficit Stated Complaint: HEADACHE, NUMBNESS IN LEFT HAND AND FACE ED Provider: Dane Azevedo Discharge Problem: TIA (transient ischemic attack) Patient Disposition: Admitted As Inpatient Discharge Instructions Interventions: ED Discharge Assessment Last Done: 09/11/18 19:45 The scribe's documentation has been prepared under my direction and personally reviewed by me in its entirety. I confirm that the note above accurately reflects all work, treatment, procedures, and medical decision making performed by me.
[2018-09-12 06:13] LABS: Estimated Average Glucose 148 mg/dl; Hemoglobin A1C 6.8 % (4.5-5.6)
[2018-09-12 08:10] LABS: Hematocrit (blood only) 35.3 % (37-47); Hemoglobin 10.9 g/dL (12.0-16.0); Mean Corpuscular Hgb Conc 30.9 g/dL (32-36); Mean Corpuscular Volume 88.7 fL (80-100); Mean Platelet Volume 10.1 fL (7.4-10.4); Platelet Count 255 K/uL (130-400); RDW Coefficient of Variation 14.2 % (11.5-14.5); RDW Standard Deviation 46.1 fL (36.4-46.3); Red Blood Count 3.98 M/uL (4.2-5.4); White Blood Count 5.13 K/uL (4.8-10.8)
--- NOTE | 2018-09-12 08:30 | Hospitalist Progress Note ---
Date of Service September 12, 2018 Assessment & Plan (1) TIA (transient ischemic attack): This is a 67-year-old female with a PMH of DM II, CKD III, HLD and other medical problems listed below who presents with left hand followed by left chin, cheek, nose followed by decreased left hand grasping / weakness. Durationapproximately 1 hour. Prior episode of similar symptoms lasting for an hour few months ago. 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 Uncertain significance; FOLLOW UP ECHO -Continue baby aspirin, statin. May consider Plavix -Neuro checks, PT, OT, speech therapy evaluations -Neurology consulted- awaiting inputs (2) Diabetes mellitus, type II: Recent a1c of 6.7 -Hold home agents -SSI while in-patient -BSG AC HS (3) Hypertension: Used to be on antihypertensives but have been discontinued -BP higher -Will start on low dose Lisinopril 5 mg daily as Diabetic and will need aggressive risk factor control with TIA (4) Hyperlipidemia: -Continue statin -LDL - 91 (5) CKD (chronic kidney disease), stage III: -Kidney function at baseline. Continue to monitor with daily BMP (6) Mood disorder: -Continue Celexa, Remeron (7) GERD (gastroesophageal reflux disease): Continue PPI DVT Ppx: SQ Lovenox Code status: FULL PCP: Daniela Dispo: Observation status Awaiting Echo results, Neurology recommendations Ok to discharge home today evening Subjective Patient is doing well. Symptoms of left hand, left facial numbness and left hand weakness has completely resolved. Symptoms lasted for approximately 1 hour prior to arrival to ED. Reports similar symptoms few months ago which resolved on its own. Denies any headaches, nausea, vomiting, focal weakness or numbness today. No fever, chills, cough, chest pain, shortness of breath. Telemetry monitorno events Physical Exam Physical Exam: GENERAL- AAOX3, No acute distress HEAD- Atraumatic, Normocephalic EYES- No pallor, icterus, redness, discharge. Pupils are equal, round, reactive to light and accomodation. EARS- Normal pinna, no discharge, tenderness noted NOSE- No nasal discharge noted NECK- Supple, no JVD LUNGS- Air entry bilaterally equal. No rales, rhonchi, crackles, wheezes heard. HEART- Regular rate and rhythm. No murmurs ABDOMEN- Soft, non tender, non distended, Bowel sounds heard. EXTREMITIES- Good peripheral pulses, no edema NEUROMUSCULAR- AAOX3, cranial nerves intact, power5/5 all extremities. Sensorynormal Results & Data Vital Signs (Past 12 Hours) Vital Signs Temp Pulse Pulse Resp BP BP Pulse Ox 09/12/18 08:11 62 09/12/18 08:05 36.7 C 66 16 147/74 H 90 09/12/18 04:00 36.7 C 68 18 114/68 95 09/11/18 23:32 72 09/11/18 23:24 36.5 C 75 20 167/83 H 93 09/11/18 21:48 36.9 C 64 16 168/79 H 96 09/11/18 21:33 36.9 C 64 16 171/84 H 97
[2018-09-12 08:39] LABS: BUN Creatinine Ratio 13.2 (10-20); Calcium 9.3 mg/dl (8.5-10.1); Creatinine Clr Calc Pharmacy 69.8 ml/min; Est GFR (African American) 68.2; Est GFR (Non-African American) 58.9; Potassium 4.3 mmol/L (3.5-5.1)
[2018-09-12] MEDS ORDERED: LEVOTHYROXINE SODIUM 75 MCG TABLET PO SCH (09:00)
[2018-09-12] MEDS ORDERED: prednisoLONE acetate 1% OP SUSP 5 ML BTL OPL SCH (09:00)
[2018-09-12] MEDS ORDERED: ENOXAPARIN INJ 40 MG/0.4 ML SYR SQ SCH (09:00)
[2018-09-12] MEDS ORDERED: ATORVASTATIN 20 MG TAB PO SCH (09:00)
[2018-09-12] MEDS ORDERED: PANTOprazole 40 MG TAB PO SCH (09:00)
[2018-09-12] MEDS ORDERED: ASPIRIN 81 MG ECTAB PO SCH (09:00)
[2018-09-12] MEDS: INSULIN ASPART 100 UNITS/ML 3 ML PEN SC SCH ×2 (09:15→12:16)
[2018-09-12] MEDS ORDERED: LISINOPRIL 5 MG TAB PO SCH (11:30)
--- NOTE | 2018-09-12 13:35 | Neurology Consultation ---
Date of Consultation September 12, 2018 History of Present Illness Attending Physician: Misa Chung Assessment / Plan: Possible Transient ischemic attack Migraine headaches Hypertension Chronic kidney disease stage III Diabetes type 2 Subcortical leukoencephalopathy HLD A 67-year-old woman admitted with transient left-sided paresthesias/numbness and weakness yesterday. No dysarthria or facial droop. She is on 81 mg of aspirin daily. Denies any history of prior stroke. Has had resolved prior to admission yesterday. Had similar episode a few weeks ago. Has frequent headaches weekly with known history of severe migraines. CTA head and neck was performed and showed no significant stenosis, no large vessel occlusion or no dissection. MRI brain was performed. My impression is no evidence of acute stroke however does show a moderate to severe subcortical leukoencephalopathy which is likely secondary to microvascular ischemic changes. - Differential diagnosis certainly includes TIA Vs migraine with aura. I am favoring possible migraine aura given her recurrent episode of similar symptoms followed by a headache with history of severe migraines. She is having frequent headaches currently which she is treating with OTC medications. - Recommend starting dual antiplatelet, ASA 81 mg daily and Plavix 75 mg daily for 21-days, then Plavix 75 mg daily indefinitely for secondary stroke prevention - Recommend increasing Lipitor to 40 mg daily - Recommend TTE, this can be performed as outpatient - Agree with starting ACEi, SBP goal < 140 mm Hg, DBP<90 mm HG - Recommend starting Topamax 25 mg night for 1 week, than 50 mg nightly and continue for migraine prophylaxis. Discussed AE inclduing paresthesias, drowsiness, cognitive difficulties. - HA1c goal less than 7 Outpatient follow up in Neurology clinic in 8 weeks History of Present Illness A 67-year-old woman with a PMH of DM II, CKD III, HLD admitted with transient left-sided paresthesias and numbness of face and hand yesterday. Symptoms had resolved on admission. Patient did not receive IV TPA. Patient was working around her yard today, mowing her lawn with a riding mower and helping in the garage when she developed progressive numbness of left hand and face. Then also developed weakness of left hand and was unable to button jeans or mushroom picker objects from table. Denies any difficulty speaking, swallowing or walking. [place] any personal history of stroke. Has been experiencing lightheadedness intermittently over the past few months that occurs when she looks up or moves quickly. Has history of vertigo and states that this feels similar. Remote history of migraines 30 years ago. She is on aspirin 81 mg daily. She has frequent weekly headaches which can be severe and associated with photophobia. Denies N/V. SHe has allodynia with some. Has 2-3 headaches per week. Has severe migraines when she was younger. Not on migraine prophylaxis. Patient was admitted for possible TIA. Neurology consulted for further eval uation. Allergies Allergy/AdvReac Type Severity Reaction Status Date / Time Penicillins Allergy Intermediate RASH Verified 09/11/18 17:05 shrimp Allergy Intermediate HIVES Verified 09/11/18 17:05 tramadol Allergy Mild iTCHY Verified 09/11/18 17:05 niacin AdvReac Mild GETS RED Verified 09/11/18 17:05 Home Medications Home Medications Medication Instructions Recorded Confirmed Type aspirin [Aspir-81] 81 mg PO DAILY 04/28/18 09/11/18 History atorvastatin [Lipitor] 20 mg PO DAILY 04/28/18 09/11/18 History citalopram [Celexa] 20 mg PO QPM 04/28/18 09/11/18 History levothyroxine [Synthroid] 75 mcg PO DAILY 04/28/18 09/11/18 History metformin [Glucophage] 1,000 mg PO BID 04/28/18 09/11/18 History omeprazole 20 mg PO DAILY 04/28/18 09/11/18 History prednisolone acetate [Pred Forte] 1 drp OPL DAILY 04/28/18 09/11/18 History mirtazapine 15 mg PO HS 09/11/18 09/11/18 History pramipexole 0.5 mg PO HS 09/11/18 09/11/18 History tramadol 50 mg PO UD PRN 09/11/18 09/11/18 History Patient History Medical History CKD (chronic kidney disease), stage III (Chronic) Mood disorder (Chronic) Diabetes mellitus, type II (Chronic) GERD (gastroesophageal reflux disease) (Chronic) Chronic tonsillitis (Chronic) Hyperlipidemia (Chronic) Hypertension (Chronic) Lumbar stenosis with neurogenic claudication (Chronic 03/13/14) Rosacea (Chronic) Surgical History History of back surgery (Chronic) H/O shoulder surgery (Chronic) History of ankle surgery (Chronic) Family History Other Cancer Diabetes Hypertension Social History Preferred Language: Yakut Communication Ability: Effective Visual Impairment: No Limitations Hearing Ability: Normal Beliefs That Will Affect Care: None marital status: Current Living Situation: Spouse Other Information That Helps Us Care for You: No Feels Safe at Home: Yes Safety Concerns: Feels Safe At This Time Smoking Status: Never smoker Years Smoked: 28 Smoking End Date: 1996 Hx Alcohol Use: No Hx Substance Use: No Physical Exam Physical Exam: EXAM: Constitutional: appearance normally developed, well nourished and non-obese Head and Face: normocephalic and atraumatic Eyes: normal lids, normal conjunctiva Neck: supple Respiratory: normal effort Cardiovascular: normal pulses Abdomen: non distended Skin: no rashes, lesions, or ulcers noted Psychiatric: normal judgement and insight, normal mood and normal affect NEUROLOGIC EXAMINATION: Appearance: no acute distress Orientation: awake, alert and oriented x 3 Mental Status: alert Memory: Poor Attention: normal Knowledge: Poor Language: no aphasia Speech: no dysarthria Cranial Nerves: CN 2 - no visual defect on confrontation and pupils round, equal, reactive to light CN 3, 4, 6 - extra-ocular movements intact and no nystagmus CN 5 - facial sensation intact CN 7 - no facial asymmetry CN 8 - intact hearing CN 9, 10 - palate symmetric CN 11 - good shoulder shrug CN 12 - tongue midline Gait: stable Coordination: no ataxia with finger to nose testing Sensory: intact and symmetric to light touch Muscle Tone: normal Muscle exam: 5/5 throughout Reflexes: Bernal Negative no grasp reflex Results & Data Vital Signs (Past 12 Hours) Vital Signs Temp Pulse Pulse Resp BP Pulse Ox 09/12/18 11:14 36.8 C 74 16 142/79 H 95 09/12/18 08:11 62 09/12/18 08:05 36.7 C 66 16 147/74 H 90 09/12/18 04:00 36.7 C 68 18 114/68 95
--- NOTE | 2018-09-12 16:16 | Discharge Summary ---
Date of Service September 12, 2018 Admission HPI Per Admitting Provider This is a 67-year-old female with a PMH of DM II, CKD III, HLD and other medical problems listed below who presents with left-sided paresthesias and numbness of face and hand beginning earlier today that have since resolved. Patient was working around her yard today, mowing her lawn with a riding mower and helping in the garage when she developed progressive numbness of left hand and face. Then also developed weakness of left hand and was unable to button jeans or pickle solution maker objects from table. Denies any difficulty speaking, swallowing or walking. Denies any personal history of stroke. Has been experiencing lightheadedness intermittently over the past few months that occurs when she looks up or moves quickly. Has history of vertigo and states that this feels similar. Remote history of migraines 30 years ago. Takes baby aspirin daily. In ED, patient mildly hypertensive with BP 155/69. Kidney function is at baseline. Has history of diabetes with A1c of 6.7 in June 2018. Prior to my evaluation, patient described as an ache in her chest that was reproducible. EKG is normal sinus rhythm, no ischemic changes. Pain has since resolved. Denies any fever, chills, lightheadedness, headache, palpitations, shortness of breath, nausea, vomiting, abdominal pain, dysuria, diarrhea or constipation. Principal Diagnosis 1. Possible TIA versus complicated migraine Secondary diagnoses on discharge 1. Hypertension 2. CKD stage III 3. Diabetes mellitus type 2 4. Subcortical leukoencephalopathy 5. Hyperlipidemia Discharge Exam GENERAL- AAOX3, No acute distress HEAD- Atraumatic, Normocephalic EYES- No pallor, icterus, redness, discharge. Pupils are equal, round, reactive to light and accomodation. EARS- Normal pinna, no discharge, tenderness noted NOSE- No nasal discharge noted NECK- Supple, no JVD LUNGS- Air entry bilaterally equal. No rales, rhonchi, crackles, wheezes heard. HEART- Regular rate and rhythm. No murmurs ABDOMEN- Soft, non tender, non distended, Bowel sounds heard. EXTREMITIES- Good peripheral pulses, no edema NEUROMUSCULAR- AAOX3, cranial nerves intact, power5/5 all extremities. Sensorynormal Discharge Data Allergies Allergy/AdvReac Type Severity Reaction Status Date / Time Penicillins Allergy Intermediate RASH Verified 09/11/18 17:05 shrimp Allergy Intermediate HIVES Verified 09/11/18 17:05 tramadol Allergy Mild iTCHY Verified 09/11/18 17:05 niacin AdvReac Mild GETS RED Verified 09/11/18 17:05 Consultations 09/11/18 17:37 ED Decision to Admit Stat 09/11/18 20:28 Consult Case Management - Discharge Planning Routine Consult Neurology Routine Ordered Studies 09/11/18 16:56 CT head/brain wo con Stat 09/11/18 20:28 CT angio head w con Routine CT angio neck with con Routine MR brain wo/w con Routine Hospital Course (1) TIA (transient ischemic attack): This is a 67-year-old female with a PMH of DM II, CKD III, HLD and other medical problems listed below who presents with left hand followed by left chin, cheek, nose followed by decreased left hand grasping / weakness. Durationapproximately 1 hour. Prior episode of similar symptoms lasting for an hour few months ago. Possible TIA vs Complicated Migraine with aura : Per neurology, favoring complicated migraine with aura given her recurrent episode of similar symptoms followed by a headache with hx of severe migraines. -Neurology recommended: Dual antiplatelet- ASA 81 mg, Plavix 75 mg daily x 21 days followed by Plavix 75 mg daily indefinitely, Increase lipitor to 40 mg q HS. 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 Uncertain significance; Unfortunately Echo wasnt ordered on admission and patient wants to be discharged. OK TO DO ECHO OUTPATIENT -Neuro checks, PT, OT, speech therapy evaluations -D/w Neurology - cleared for discharge with above recommendations and f/up with them outpatient (2) Migraine headache: Possible complicated migraine with aura -Per neurology recommendations, started on Topamax 25 mg q HS and after a week increase it to 50 mg q HS till seen by neurology (3) Diabetes mellitus, type II: Recent a1c of 6.7 -Hold home agents -SSI while in-patient -BSG AC HS (4) Hypertension: Used to be on antihypertensives but have been discontinued -BP higher while in hospital -Will start on low dose Lisinopril 5 mg daily as Diabetic and will need risk factor control with chronic ischemic vessel changes on MRI (5) Hyperlipidemia: -Increase atorvastatin to 40 mg for more aggressive control of risk factors given chronic ischemic vessel changes on MRI -LDL - 91 (6) CKD (chronic kidney disease), stage III: -Kidney function at baseline. (7) Mood disorder: -Continue Celexa, Remeron (8) GERD (gastroesophageal reflux disease): Continue PPI DVT Ppx: SQ Lovenox Code status: FULL PCP: Daniela Dispo: Observation status Eager to be discharged Cleared by neurology for discharge to home today Total Time Total Time Spent Total Time Spent (In Minutes): 25 minutes Discharge Plan Discharge Items Patient Disposition: Home - Self-Care Reason For Visit: TIA Discharge Diagnosis: Possible TIA vs complicated migraine with aura Discharge Goals: Decrease discomfort and Improve disease control Activity: Resume your previous activity Non-emergency contact: Primary Care Provider Call non-emergency contact if: your symptoms worsen Follow-up/Referrals: Mari Nieves [Other] - 09/19/18 10:45 am Diet: Low Fat and Low Sodium (2gm) Addtl Provider Instructions: MEDICATION CHANGES MEDICATION CHANGES 1. New medication- Plavix 75 mg daily indefinitely 2. Continue with Aspirin 81 mg and Plavix 75 mg daily x 21 days and than discontinue Aspirin and continue with plavix 75 mg daily indefinitely 3. Increase atorvastatin to 40 mg daily 4. New medication- Lisinopril 5 mg daily for hypertension You need to get ECHOCARDIOGRAM done outpatient Prescriptions: New lisinopril 10 mg tablet 10 mg PO QAM 30 Days Qty: 30 RF: 0 atorvastatin 40 mg tablet 40 mg PO DAILY Qty: 30 RF: 0 clopidogrel [Plavix] 75 mg tablet 75 mg PO DAILY Qty: 30 RF: 0 topiramate [Topamax] 25 mg tablet 25 mg PO HS 30 Days Qty: 30 RF: 0 Continued tramadol 50 mg tablet 50 mg PO UD PRN (Reason: Pain) RF: 0 pramipexole 0.5 mg tablet 0.5 mg PO HS RF: 0 mirtazapine 15 mg tablet 15 mg PO HS RF: 0 aspirin [Aspir-81] 81 mg Tablet,Delayed Release (Dr/Ec) 81 mg PO DAILY RF: 0 levothyroxine [Synthroid] 75 mcg tablet 75 mcg PO DAILY RF: 0 citalopram [Celexa] 20 mg tablet 20 mg PO QPM RF: 0 prednisolone acetate [Pred Forte] 1 % drops,suspension 1 drp OPL DAILY RF: 0 metformin [Glucophage] 1,000 mg tablet 1,000 mg PO BID RF: 0 omeprazole 20 mg Capsule,Delayed Release(Dr/Ec) 20 mg PO DAILY RF: 0 Discontinued atorvastatin [Lipitor] 20 mg tablet 20 mg PO DAILY RF: 0 Stand-Alone Forms: [facility]/Other Patient Handouts: Blood Sugar Check Discharge Orders: Discharge Order (Routine); Ordered 09/12/18 Ordered By: Misa Chung Admission Data Admit Date/Time: 09/11/18 19:24 Attending Provider: Misa Chung Admit Provider: Nicolás Story Primary Care Provider: Miguel Suarez Other Providers: Nicolás Story ; Lyle Sahu ; Tiffanie Prather Service: [facility] Other Pending Studies at Discharge: Yes Studies:: ECHOCARDIOGRAM NEEDS TO BE ORDERED OUTPATIENT
[2018-09-12] MEDS ORDERED: STROKE PATIENT DISCHARGE STA (16:23)
--- NOTE | 2018-09-12 17:37 | Pharmacy Report ---
Pharmacist Stroke Counseling - Date of Service September 12, 2018 - Scope: Pharmacy has been consulted to provide medication discharge counseling for this patient admitted with possible TIA vs complicated migraine as per the Pharmacist Discharge Counseling for Stroke Patients Protocol. - Medications on Discharge: Home Medications Medication Instructions Recorded Confirmed aspirin [Aspir-81] 81 mg PO DAILY 04/28/18 09/11/18 citalopram [Celexa] 20 mg PO QPM 04/28/18 09/11/18 levothyroxine [Synthroid] 75 mcg PO DAILY 04/28/18 09/11/18 metformin [Glucophage] 1,000 mg PO BID 04/28/18 09/11/18 omeprazole 20 mg PO DAILY 04/28/18 09/11/18 prednisolone acetate [Pred Forte] 1 drp OPL DAILY 04/28/18 09/11/18 mirtazapine 15 mg PO HS 09/11/18 09/11/18 pramipexole 0.5 mg PO HS 09/11/18 09/11/18 tramadol 50 mg PO UD PRN 09/11/18 09/11/18 New Rx's Medication Instructions Recorded atorvastatin 40 mg PO DAILY #30 tab 09/12/18 clopidogrel [Plavix] 75 mg PO DAILY #30 tab 09/12/18 lisinopril 10 mg PO QAM 30 Days #30 tab 09/12/18 topiramate [Topamax] 25 mg PO HS 30 Days #30 tab 09/12/18 - Action: The above medications, specifically ones for stroke treatment/prophylaxis, have been reviewed in detail with the patient and/or patient traveling representative(s) prior to discharge. This includes indication, common adverse reactions, drug interactions, and medication administration. Medication counseling has been employed using the teach-back method to ensure understanding. - Outcome: The patient and/or patient traveling representative(s) have demonstrated understanding of the medications. Please note, they are aware that the pharmacist will call them within 72 hours post-discharge to confirm that the appropriate medications are being taken and answer any further medication related questions the patient might have at that time. Contact information Individual to be contacted: patient Relationship to patient (if applicable): n/a Phone number: [phone] Best time to call: anytime - okay to leave a message to call back Additional comments: Patient admitted with possible TIA vs. migraine symptoms. Per neurology patient to be on aspirin and plavix x 21 days, then plavix indefinitely. Talked with patient about monitoring for increase in bruising/bleeding with these medications. Topiramate added for migraine prophylaxis for patient to take 25 mg hs x 1 week then increase to 50 mg hs thereafter. Lisinopril added for blood pressure control. Talked about monitoring blood pressure at home and its importance with stroke prevention. Did have a long discussion with the provider regarding drug interaction with plavix and omeprazole and how combination of these two medications can decrease the efficacy of plavix. The provider is aware of interaction, but does not feel that a change in PPI medication is warranted at this time. Recommended changing to protonix to avoid interaction, but provider refused. Per provider, more likely complicated migraine and less likely TIA on discharge dx so did not feel interaction significant. Patient aware we will follow up with them in a couple days. Thank you for allowing pharmacy to be involved in the care of this patient. Please call [phone] or [phone] with any additional questions
--- NOTE | 2018-09-14 15:46 | Pharmacy Report ---
Pharmacist Post D/C Phone Note - Phone Note: Date of phone call: September 14, 2018. Individual with whom pharmacist spoke to: DANAY Radha CYNTHIA The following questions were reviewed during the phone call with responses listed below each: Can you tell me the medications that you are currently taking as well as when and how you take each medication? -See Table Below When have you missed any doses of your medications? - none What side effects are you having from your medications, specifically, the new medications you were started on? - none What questions do you have about your medications? - none What problems are you having obtaining your medications? - none When is your next appointment with your primary care doctor? - "next week" Additional comments: - admits to not taking her own BP readings. She doesn't want to spend money on an expensive reader. I suggest she go to [employer] or [facility]. Pt was agreable to this. As per the Pharmacist Discharge Counseling for Stroke Patients Protocol, this phone call has been completed within 72 hours of discharge. Thank you for allowing us to be involved in the care of this patient. Thank you for allowing us to be involved in the care of this patient. - Home Medications: Home Medications Medication Instructions Recorded Confirmed aspirin [Aspir-81] 81 mg PO DAILY 04/28/18 09/11/18 citalopram [Celexa] 20 mg PO QPM 04/28/18 09/11/18 levothyroxine [Synthroid] 75 mcg PO DAILY 04/28/18 09/11/18 metformin [Glucophage] 1,000 mg PO BID 04/28/18 09/11/18 omeprazole 20 mg PO DAILY 04/28/18 09/11/18 prednisolone acetate [Pred Forte] 1 drp OPL DAILY 04/28/18 09/11/18 mirtazapine 15 mg PO HS 09/11/18 09/11/18 pramipexole 0.5 mg PO HS 09/11/18 09/11/18 tramadol 50 mg PO UD PRN 09/11/18 09/11/18 New Rx's Medication Instructions Recorded atorvastatin 40 mg PO DAILY #30 tab 09/12/18 clopidogrel [Plavix] 75 mg PO DAILY #30 tab 09/12/18 lisinopril 10 mg PO QAM 30 Days #30 tab 09/12/18 topiramate [Topamax] 25 mg PO HS 30 Days #30 tab 09/12/18
== END 2018-09-12 17:45 | disposition home or self-care (01) ==
LOC: 2W 16:35 → ED 16:35 → SUATTDRO 19:24 → 2W 19:45